=== PATIENT | female | born 1995 | race Two or more races ===

== ENCOUNTER 2017-01-17 19:07 | Emergency (ER) | payer BC ==
[~2017-01-17] VITALS: Ht 167.6 cm; Wt 74.8 kg
[2017-01-17 19:19] VITALS: BP 120/76
[2017-01-17] MEDS ORDERED: Ketorolac 60mg Inj IM ONE (20:00)
--- NOTE | 2017-01-17 20:15 | Emergency Room Report ---
History of Present Illness General Chief Complaint: Lower Back Pain or Injury Source: Patient Present Illness HPI 21 YO Female presents to the ED c/o right sided neck pain described as " sharp and tight" s/p putting books away on a shelf 1 week ago, pain ever since, pt. was seen by chiropractor had adjustment done with no relief.Denies fevers, chills, frequency, urgency, dysuria, hematuria. She states the pain does not radiate. Pain is 9 on a 10 in severity, exacerbated upon palpation. Mild relief with Tylenol. Denies numbness tingling or loss of sensation or gross motor movements of the extremities, incontinence of bowel or bladder. Denies CP , Palpitations, LOC, AMS, dizziness, Changes in Vision, Sensation, paresthesias , or a sudden severe headache. Allergies: Coded Allergies: No Known Allergies (Unverified , 01/17/17) Patient History Past Medical History: see triage record Past Surgical History: none Pertinent Family History: none Now: No Immunizations: UTD Reviewed Nursing Documentation: PMH: Agreed, PSxH: Agreed Nursing Documentation-PMH Past Medical History: No Stated History Review of Systems All Other Systems: negative except mentioned in HPI Physical Exam Vital Signs Date Time Temp Pulse Resp B/P Pulse Ox O2 Delivery O2 Flow Rate FiO2 01/17/17 19:15 97.9 80 20 120/76 98 Room Air Sp02 EP Interpretation: reviewed, normal General Appearance: no apparent distress, alert, GCS 15, non-toxic Head: normocephalic, atraumatic Eyes: bilateral eye PERRL, bilateral eye normal inspection ENT: hearing grossly normal, normal pharynx, no angioedema, normal voice Neck: full range of motion, supple/symm/no masses Respiratory: chest non-tender, lungs clear, normal breath sounds, speaking full sentences Cardiovascular #1: regular rate, rhythm, no edema Musculoskeletal: back normal, gait/station normal, normal range of motion, tender - moderate right paraspinal thoracic TTP, no midline TTP, no obvious step -off. Neurologic: alert, oriented x3, responsive, motor strength/tone normal, sensory intact, speech normal, other Psychiatric: judgement/insight normal, memory normal, mood/affect normal Skin: normal color, no rash, warm/dry, well hydrated Lymphatic: no adenopathy Medical Decision Making PA Attestation Dr. lee is my supervising Physician whom patient management has been discussed with. Diagnostic Impression: Primary Impression: Muscle strain of right upper back Qualified Codes: S29.012A - Strain of muscle and tendon of back wall of thorax , initial encounter ER Course Pt. presents to the ED c/o right sided neck pain described as " sharp and tight " s/p putting books away on a shelf 1 week ago, pain ever since, pt. was seen by chiropractor had adjustment done with no relief. Ddx considered but are not limited to Fracture, dislocation, contusion, epidural abscess, Sprain/Strain/Spasm Vital signs: are WNL, pt. is afebrile H&PE are most consistent with muscle strain of back. no evidence of infection no saddle anesthesia or incontinence. ORDERS: -UA: unremarkable ED INTERVENTIONS: -350mg Soma PO - 60mg Toradol IM d/w pt conservative management and to follow up with pcp in 3-5 days. gave pt. list of free/reduced cost clinics in the area. d/w pt. to return to ED with worsening or new symptoms. DISCHARGE: At this time pt. is stable for d/c to home. Will provide printed patient care instructions, and any necessary prescriptions. Care plan and follow up instructions have been discussed with the patient prior to discharge. Labs Test 01/17/17 19:30 Urine Color Pale yellow Urine Appearance Clear Urine pH 6 (4.5-8.0) Urine Specific [place] 1.010 (1.005-1.035) Urine Protein Negative (NEGATIVE) Urine Glucose (UA) Negative (NEGATIVE) Urine Ketones Negative (NEGATIVE) Urine Occult Blood 1+ (NEGATIVE) Urine Nitrite Negative (NEGATIVE) Urine Bilirubin Negative (NEGATIVE) Urine Urobilinogen Normal MG/DL (0.0-1.0) Urine Leukocyte Esterase 2+ (NEGATIVE) Urine RBC 0-2 /HPF (0 - 2) Urine WBC 2-4 /HPF (0 - 2) Urine Squamous Epithelial Cells Few /LPF (NONE/OCC) Urine Bacteria Few /HPF (NONE) Last Vital Signs Date Time Temp Pulse Resp B/P Pulse Ox O2 Delivery O2 Flow Rate FiO2 01/17/17 19:19 97.9 20 120/76 98 Room Air 01/17/17 19:15 80 Disposition: HOME, SELF-CARE Condition: Stable Scripts Ibuprofen* (MOTRIN*) 600 Mg Tablet 600 MG ORAL THREE TIMES A DAY, #30 TAB 0 Refills Prov: Gisela Phillips 01/17/17 Cyclobenzaprine Hcl* (FLEXERIL*) 10 Mg Tablet 10 MG ORAL THREE TIMES A DAY for 7 Days, #21 TAB Prov: Gisela Phillips 01/17/17 Referrals: MIQUEL PANG (PCP) Patient Instructions: Back Pain, Adult, Muscle Strain Additional Instructions: Take medications as directed. Follow up with PCP in 3-5 days Return sooner to ED if new symptoms occur, or current symptoms become worse. Do not drink alcohol, drive, or operate heavy machinery while taking muscle relaxers as this may cause drowsiness. - Please note that this Emergency Department Report was dictated using [employer] turner machine operator technology software, occasionally this can lead to erroneous entry secondary to interpretation by the dictation equipment. Gisela Phillips January 17, 2017 20:15
[2017-01-17 20:25] LABS: APPEARANCE,URINE CLEAR; KETONES,URINE NEGATIVE (NEGATIVE); LEUKOCYTE ESTERASE ,URINE 2+ (NEGATIVE); NITRITE,URINE NEGATIVE (NEGATIVE); PH,URINE 6 (4.5-8.0); PROTEIN,URINE NEGATIVE (NEGATIVE); UROBILINOGEN,URINE NORMAL MG/DL (0.0-1.0)
[2017-01-17] MEDS ORDERED: CYCLOBENZAPRINE10 MG ORAL (20:28)
[2017-01-17] MEDS ORDERED: IBUPROFEN600 MG ORAL (20:28)
[2017-01-17 20:31] LABS: BACTERIA,URINE FEW /HPF; RBC,URINE 0-2 /HPF (0 - 2); SQUAMOUS EPITHELIAL CELL,UR FEW /LPF (NONE/OCC)
[2017-01-17 20:50] VITALS: BP 122/72
[2017-01-17 21:04] VITALS: BP 122/72
== END 2017-01-17 21:04 | disposition home or self-care (01) ==
LOC: EMR 19:30
DX: S29.012A Strain of muscle and tendon of back wall of thorax, initial encounter (principal); X58.XXXA Exposure to other specified factors, initial encounter; Y92.9 Unspecified place or not applicable; Y99.8 Other external cause status
CPT/HCPCS: 81003; 96372; 99284

== ENCOUNTER 2017-11-17 13:58 | Emergency (ER) | payer BC ==
[~2017-11-17] VITALS: Ht 167.6 cm; Wt 75.7 kg
[~2017-11-17 13:58] MED LIST: CYCLOBENZAPRINE10 MG ORAL; IBUPROFEN600 MG ORAL
[2017-11-17] MEDS ORDERED: NKM (14:18)
--- NOTE | 2017-11-17 14:31 | Emergency Room Report ---
History of Present Illness General Chief Complaint: Complications Source: Patient Present Illness HPI 22-year-old female presents to the emergency department complaining of 03/27 in severity lower abdominal/pelvic pain x2 weeks. Patient reports that she is approximately 4 weeks according to last menstrual period calculation which was September 27. Patient is . Denies vaginal discharge or bleeding denies nausea, vomiting. Patient states she has not taken medications for her symptoms. She denies urinary frequency, urgency, hematuria or dysuria. Denies fevers or chills. Denies constipation or diarrhea. Denies History of STI. Denies CP, Palpitations, LOC, AMS, dizziness, Changes in Vision, Sensation, paresthesias, or a sudden severe headache. Allergies: Coded Allergies: No Known Allergies (Unverified , 01/17/17) Patient History Past Medical History: see triage record Past Surgical History: none Pertinent Family History: none Last Menstrual Period: 09/27/17 Now: Yes Reviewed Nursing Documentation: PMH: Agreed, PSxH: Agreed Nursing Documentation-PMH Past Medical History: No Stated History Review of Systems All Other Systems: negative except mentioned in HPI Physical Exam Vital Signs Date Time Temp Pulse Resp B/P (MAP) Pulse Ox O2 Delivery O2 Flow Rate FiO2 11/17/17 14:14 98.3 82 18 111/70 99 Room Air 98.2 Sp02 EP Interpretation: reviewed, normal General Appearance: no apparent distress, alert, GCS 15, non-toxic Head: normocephalic, atraumatic ENT: hearing grossly normal, normal voice Neck: full range of motion Respiratory: lungs clear, normal breath sounds, speaking full sentences Cardiovascular #1: regular rate, rhythm Gastrointestinal: normal bowel sounds, non tender, soft, non-distended, no guarding, no rebound, tenderness - Tenderness in the lower pubis area- midline. Rectal: deferred Genitourinary: normal inspection, no CVA tenderness, deferred - for US Musculoskeletal: back normal, gait/station normal, normal range of motion, non- tender Neurologic: alert, oriented x3, responsive, motor strength/tone normal, sensory intact, speech normal, grossly normal Psychiatric: judgement/insight normal Skin: normal color, no rash, warm/dry, well hydrated Medical Decision Making PA Attestation Dr. Guzman is my supervising Physician whom patient management has been discussed with. Diagnostic Impression: Primary Impression: Abdominal pain affecting Additional Impression: Threatened in early ER Course Pt. presents to the ED c/o Abdominal pain during early . Denies vaginal bleeding or d/c. Ddx considered but are not limited to: Fibroid, ectopic , Fibroid, Spontaneous , Vital signs: are WNL, pt. is afebrile H&PE are most consistent with: ectopic, IUP, Spontaneous just to name a few. ORDERS: - CBC: WBC 13.3 remaining is unremarkable -CMP: Unremarkable -Lipase: WNL -Urine hcg- Positive -UA: Unremarkable -serum Hcg Quant: 8184 - Blood/RH type and screen- ( AB Negative ) -- d/w pt. results of her blood type and that in subsequent pregnancies or with vaginal bleeding will require medication to prevent blood reaction. d/w pt. to follow up with her OBGYN. ( no vaginal bleeding at this time, and Para 1 does not necessitate emergency administration of RhoGam). - D/w pt. that she will need repeat HCG in 48-72 hours and repeat US to establish IUP. " Mild cystic structure in the uterus measuring 8.8 mm too small to date, no Yolk sack,no pole. free- fluid noted in cul-de-sac, bilateral nabothian cysts, possible spontaneous versus pseudo-gestational sac. " Per official radiology report- Please see report for specific details. ED INTERVENTIONS: None at this time. DISCHARGE: At this time pt. is stable for d/c to home. Will provide printed patient care instructions, and any necessary prescriptions. Care plan and follow up instructions have been discussed with the patient prior to discharge. Labs Test 11/17/17 14:47 White Blood Count 13.3 K/UL (4.8-10.8) Red Blood Count 5.17 M/UL (4.20-5.40) Hemoglobin 15.3 G/DL (12.0-16.0) Hematocrit 44.9 % (37.0-47.0) Mean Corpuscular Volume 87 FL (80-99) Mean Corpuscular Hemoglobin 29.6 PG (27.0-31.0) Mean Corpuscular Hemoglobin Concent 34.2 G/DL (32.0-36.0) Red Cell Distribution Width 11.5 % (11.6-14.8) Platelet Count 273 K/UL (150-450) Mean Platelet Volume 7.6 FL (6.5-10.1) Neutrophils (%) (Auto) 63.1 % (45.0-75.0) Lymphocytes (%) (Auto) 30.6 % (20.0-45.0) Monocytes (%) (Auto) 4.7 % (1.0-10.0) Eosinophils (%) (Auto) 0.8 % (0.0-3.0) Basophils (%) (Auto) 0.8 % (0.0-2.0) Urine Color Pale yellow Urine Appearance Clear Urine pH 6.5 (4.5-8.0) Urine Specific [place] 1.005 (1.005-1.035) Urine Protein Negative (NEGATIVE) Urine Glucose (UA) Negative (NEGATIVE) Urine Ketones Negative (NEGATIVE) Urine Occult Blood Negative (NEGATIVE) Urine Nitrite Negative (NEGATIVE) Urine Bilirubin Negative (NEGATIVE) Urine Urobilinogen Normal MG/DL (0.0-1.0) Urine Leukocyte Esterase Negative (NEGATIVE) Urine HCG, Qualitative Positive Sodium Level 137 MMOL/L (136-145) Potassium Level 3.6 MMOL/L (3.5-5.1) Chloride Level 103 MMOL/L (98-107) Carbon Dioxide Level 26 MMOL/L (21-32) Anion Gap 9 mmol/L (5-15) Blood Urea Nitrogen 6 mg/dL (7-18) Creatinine 0.7 MG/DL (0.55-1.30) Estimat Glomerular Filtration Rate > 60 mL/min (>60) Glucose Level 86 MG/DL (74-106) Calcium Level 9.6 MG/DL (8.5-10.1) Total Bilirubin 0.3 MG/DL (0.2-1.0) Aspartate Amino Transf (AST/SGOT) 16 U/L (15-37) Alanine Aminotransferase (ALT/SGPT) 30 U/L (12-78) Alkaline Phosphatase 87 U/L (46-116) Total Protein 8.0 G/DL (6.4-8.2) Albumin 3.8 G/DL (3.4-5.0) Globulin 4.2 g/dL Albumin/Globulin Ratio 0.9 (1.0-2.7) Lipase 108 U/L (73-393) Human Chorionic Gonadotropin, Quant 8184 mIU/mL (1-6) CT/MRI/US Diagnostic Results CT/MRI/US Diagnostic Results : Imaging Test Ordered: Pelvic US Impression " Mild cystic structure in the uterus measuring 8.8 mm too small to date, no Yolk sack,no pole. free- fluid noted in cul-de-sac, bilateral nabothian cysts, possible spontaneous versus pseudo-gestational sac. " Per official radiology report- Please see report for specific details. Last Vital Signs Date Time Temp Pulse Resp B/P (MAP) Pulse Ox O2 Delivery O2 Flow Rate FiO2 11/17/17 14:14 98.3 82 18 111/70 99 Room Air 98.2 Disposition: HOME, SELF-CARE Condition: Stable Scripts Acetaminophen* (TYLENOL EXTRA STRENGTH*) 500 Mg Tablet 500 MG ORAL Q8H, #20 TAB 0 Refills Prov: Gisela Phillips 11/17/17 Vit #91/Fe Fum/Fa/Dha ( + DHA COMBO PACK) 1 Each Combo..pkg 1 EACH PO DAILY, #4 PACK Prov: Gisela Phillips 11/17/17 Patient Instructions: Abdominal Pain During , [id number] Additional Instructions: Take medications as directed. Follow up with a OBGYN within 3 days, even if your symptoms have resolved. NEED REPEAT ULTRASOUND, and Hcg Measurements. today was 8,615 Return sooner to ED if new symptoms occur, or current symptoms become worse. - Please note that this Emergency Department Report was dictated using [employer] roller technology software, occasionally this can lead to erroneous entry secondary to interpretation by the dictation equipment. Gisela Phillips Nov 17, 2017 14:31
[2017-11-17 15:22] LABS: BASOPHILS % (AUTO) 0.8 % (0.0-2.0); EOSINOPHILS % (AUTO) 0.8 % (0.0-3.0); HEMATOCRIT 44.9 % (37.0-47.0); HEMOGLOBIN 15.3 G/DL (12.0-16.0); LYMPHOCYTES % (AUTO) 30.6 % (20.0-45.0); MEAN CORPUSCULAR VOLUME 87 FL (80-99); MONOCYTES % (AUTO) 4.7 % (1.0-10.0); NEUTROPHILS % (AUTO) 63.1 % (45.0-75.0); PLATELET COUNT 273 K/UL (150-450); RED BLOOD COUNT 5.17 M/UL (4.20-5.40); RED CELL DISTRIBUTION WIDTH 11.5 % (11.6-14.8); WHITE BLOOD COUNT 13.3 K/UL (4.8-10.8)
[2017-11-17 15:26] LABS: ANION GAP 9 mmol/L (5-15); BLOOD UREA NITROGEN 6 mg/dL (7-18); CALCIUM 9.6 MG/DL (8.5-10.1); CARBON DIOXIDE 26 MMOL/L (21-32); CHLORIDE 103 MMOL/L (98-107); CREATININE 0.7 MG/DL (0.55-1.30); POTASSIUM 3.6 MMOL/L (3.5-5.1); SODIUM 137 MMOL/L (136-145)
[2017-11-17 15:31] LABS: ALANINE AMINOTRANSFERASE 30 U/L (12-78); ALBUMIN 3.8 G/DL (3.4-5.0); ALBUMIN/GLOBULIN RATIO 0.9 (1.0-2.7); ASPARTATE AMINO TRANSFERASE 16 U/L (15-37); BILIRUBIN,TOTAL 0.3 MG/DL (0.2-1.0)
[2017-11-17 15:41] LABS: APPEARANCE,URINE CLEAR; BILIRUBIN, URINE NEGATIVE (NEGATIVE); COLOR,URINE PALE YELLOW; GLUCOSE, URINE (UA) NEGATIVE (NEGATIVE); KETONES,URINE NEGATIVE (NEGATIVE); LEUKOCYTE ESTERASE ,URINE NEGATIVE (NEGATIVE); NITRITE,URINE NEGATIVE (NEGATIVE); PH,URINE 6.5 (4.5-8.0); PROTEIN,URINE NEGATIVE (NEGATIVE); UROBILINOGEN,URINE NORMAL MG/DL (0.0-1.0)
[2017-11-17 15:46] LABS: ALKALINE PHOSPHATASE 87 U/L (46-116)
--- NOTE | 2017-11-17 16:41 | Diagnostic Imaging Report ---
Indication: Pelvic pain. Positive test Technique: Grayscale and duplex Doppler imaging of the pelvis performed utilizing a transabdominal scan and endovaginal scan. Comparison: None Findings: There is a small cystic structure in the central part of the uterus measuring 8.8 mm, too small to date. There is no yolk sac or pole identified. The findings are nonspecific. In light of the positive test this may be a early intrauterine . Differential consideration includes spontaneous incomplete or pseudogestational sac. Follow-up serial quantitative beta-hCG evaluation to assess for doubling time and a repeat ultrasound are recommended. There is a moderate amount of echo-free free fluid within the cul-de-sac. There are cervical nabothian cysts present. There is a simple cyst demonstrated within the left ovary measuring 2.5 x 1.5 cm. There is dopplerable blood flow within both ovaries. IMPRESSION: Nonspecific cystic focus in the central uterus. This may be an early intrauterine . Differential includes pseudogestational sac versus incomplete spontaneous . Follow-up and correlation with serial quantitative beta hCG recommended. 2.5 cm suspected left corpus luteum cyst. Follow-up recommended
[2017-11-17] MEDS ORDERED: TYLENOL EXTRA500 MG ORAL (17:42)
[2017-11-17] MEDS ORDERED: PRENATAL + DHA1 EAC1 PO (17:42)
[2017-11-17 18:20] VITALS: BP 106/64
== END 2017-11-17 18:20 | disposition home or self-care (01) ==
LOC: EMR 15:35
DX: O26.891 Other specified pregnancy related conditions, first trimester (principal); Z3A.01 Less than 8 weeks gestation of pregnancy; R10.9 Unspecified abdominal pain; O20.0 Threatened abortion
CPT/HCPCS: 36415; 76801; 76830; 80053; 81003; 81025; 83690; 84702; 85025; 86900; 86901; 99284